=== PATIENT | female | born 1945 | race Caucasian/White ===

== ENCOUNTER → 2024-04-03 06:47 | Outpatient (REF) | payer BC, MEDICARE, SELFPAY ==
[2024-04-03 08:03] LABS: ALT (SGPT) 25 U/L (0-35); AST (SGOT) 31 U/L (14-36); Albumin 3.8 g/dl (3.5-5.0); Alkaline Phosphatase 131 U/L (38-126); Blood Urea Nitrogen 19 mg/dl (7-17); Carbon Dioxide 27 mmol/L (22-30); Chloride 101 mmol/L (98-107); Glucose 99 mg/dl (70-99); Sodium 136 mmol/L (135-145); Total Bilirubin 0.8 mg/dl (0.2-1.3); Total Protein 6.8 g/dl (6.3-8.2); eGFR > 60.00
== END ==
LOC: REG 06:47
PROVIDERS: ATTENDING PHYSICIAN Family Medicine
DX: R91.8 Other nonspecific abnormal finding of lung field (principal); I10 Essential (primary) hypertension
CPT/HCPCS: 36415; 80053

== ENCOUNTER → 2024-04-16 13:43 | Outpatient (REF) | payer BC, MEDICARE, SELFPAY | LOC: RAD 13:43 | PROVIDERS: ATTENDING PHYSICIAN Family Medicine | DX: R91.8 Other nonspecific abnormal finding of lung field (principal) | CPT/HCPCS: 71260; Q9967 ==

== ENCOUNTER → 2025-06-05 14:32 | Outpatient (REF) | payer MEDICARE, SELFPAY ==
[2025-06-05 15:51] LABS: Hematocrit 40.4 % (37.0-47.0); Hemoglobin 13.4 g/dL (12.0-16.0); Mean Corp Hgb Conc. 33.2 g/dL (33.0-37.0); Mean Corpuscular Volume 94.8 fL (81.0-99.0); Nucleated Red Blood Cells % 0 %; Platelet Count 181 10^3/uL (130-400); Red Cell Dist. Width 13.6 % (11.5-14.5)
[2025-06-05 16:13] LABS: ALT (SGPT) 22 U/L (0-35); AST (SGOT) 28 U/L (14-36); Albumin 4.0 g/dl (3.5-5.0); Alkaline Phosphatase 105 U/L (38-126); Blood Urea Nitrogen 19 mg/dl (7-17); Calcium 9.4 mg/dl (8.4-10.2); Carbon Dioxide 27 mmol/L (22-30); Chloride 104 mmol/L (98-107); Glucose 105 mg/dl (70-99); Potassium 5.0 mmol/L (3.5-5.1); Sodium 137 mmol/L (135-145); Total Protein 6.6 g/dl (6.3-8.2); eGFR > 60.00
== END ==
LOC: REG 14:32
PROVIDERS: ATTENDING PHYSICIAN Family Medicine
DX: R10.9 Unspecified abdominal pain (principal); R91.1 Solitary pulmonary nodule; L29.9 Pruritus, unspecified
CPT/HCPCS: 36415; 80053; 85025